=== PATIENT | male | born 1970 | race Two or more races ===

== ENCOUNTER 2018-03-30 20:23 | Emergency (ER) | payer OTHER ==
--- NOTE | 2018-03-31 00:51 | ER Document Report ---
ED Medical Screen (RME) - General Chief Complaint: Laceration Stated Complaint: FACIAL LACERATION Time Seen by Provider: 03/31/18 00:45 Mode of Arrival: Ambulatory Information source: Patient Notes: Patient with 2 cm superficial laceration just superior to the left eye above the eyebrow. Patient reports he was working on a vehicle when a ratchet hit him in the face. Patient denies any significant past medical history. Patient unsure when last Tdap was. Exam: 2 cm superficial laceration superior to the left eye. No active bleeding noted at this time. I have greeted and performed a rapid initial assessment of this patient. A comprehensive ED assessment and evaluation of the patient, analysis of test results and completion of the medical decision making process will be conducted by additional ED providers. Dictation of this chart was performed using voice recognition software; therefore, there may be some unintended grammatical errors. TRAVEL OUTSIDE OF THE [place] IN LAST 30 DAYS: No - Related Data Allergies/Adverse Reactions: No Known Allergies Allergy (Verified 03/30/18 20:24) Physical Exam - Vital signs Vitals: Temp Pulse Resp BP Pulse Ox 98.6 F 68 19 176/91 H 96 03/30/18 20:34 03/30/18 20:34 03/30/18 20:34 03/30/18 20:34 03/30/18 20:34 Course - Vital Signs Vital signs: Temp Pulse Resp BP Pulse Ox 98.6 F 68 19 176/91 H 96 03/30/18 20:34 03/30/18 20:34 03/30/18 20:34 03/30/18 20:34 03/30/18 20:34
[2018-03-31] MEDS ORDERED: LIDOCAINE 4%/TETRACAINE 0.5%/EPI 0.18% 5 ML TOPICAL SOLN TOP ONE (00:54)
[2018-03-31] MEDS ORDERED: DIPH/PERTUSS(ACELL)/TETANUS VAC/PF 0.5 ML SYR (>=10YO) IM ONE (00:55)
[2018-03-31] MEDS ORDERED: IBUPROFEN 600 MG TABLET PO ONE (00:58)
--- NOTE | 2018-03-31 01:48 | ER Document Report ---
ED Wound <JACKIE CUNNINGHAM - Last Filed: 03/31/18 01:49> - General Mode of Arrival: Ambulatory TRAVEL OUTSIDE OF THE [place] IN LAST 30 DAYS: No <DENEEN FUENTES - Last Filed: 03/31/18 01:58> - General Chief Complaint: Laceration Stated Complaint: FACIAL LACERATION Time Seen by Provider: 03/31/18 00:45 - Related Data Allergies/Adverse Reactions: No Known Allergies Allergy (Verified 03/30/18 20:24) Past Medical History - Social History Smoking Status: Never Smoker Frequency of alcohol use: None Drug Abuse: None Lives with: Family Family History: Reviewed & Not Pertinent <JACKIE CUNNINGHAM - Last Filed: 03/31/18 01:49> - General Information source: Patient <DENEEN FUENTES - Last Filed: 03/31/18 01:58> - Vital signs Vitals: Temp Pulse Resp BP Pulse Ox 98.6 F 68 19 176/91 H 96 03/30/18 20:34 03/30/18 20:34 03/30/18 20:34 03/30/18 20:34 03/30/18 20:34 Course <JACKIE CUNNINGHAM - Last Filed: 03/31/18 01:49> <DENEEN FUENTES - Last Filed: 03/31/18 01:58> - Re-evaluation Re-evalutation: 03/31/18 01:49 Following discussion of risks, alternatives, and benefits, the patient had the wound area cleaned with saline then topical anesthetic LET was applied to the wound then the 1.2 cm laceration was reapproximated and closed by myself using Dermabond with good result. Blood loss negligible. No clinical suggestion for significant intracranial injury or fracture. Patient denies any significant headache. He is neurologically intact and had no loss of consciousness. Patient was given a tetanus shot. (JACKIE CUNNINGHAM) - Vital Signs Vital signs: Temp Pulse Resp BP Pulse Ox 98.6 F 68 19 176/91 H 96 03/30/18 20:34 03/30/18 20:34 03/30/18 20:34 03/30/18 20:34 03/30/18 20:34 Discharge <JACKIE CUNNINGHAM - Last Filed: 03/31/18 01:49> <DENEEN FUENTES - Last Filed: 03/31/18 01:58> - Discharge Clinical Impression: Laceration Condition: Stable Disposition: HOME, SELF-CARE Additional Instructions: NON-SUTURED LACERATION: Your laceration did not require suturing. Some lacerations cannot be sutured because of increased infection risk, while others simply don't need stitches because they are shallow or very short. Your injury should be protected while it heals. Usually complete healing takes 10 to 14 days. Keep the dressing clean and dry, and change it every day. If you notice increasing pain, redness, swelling, drainage, or tender lumps in the armpit or groin above the injury, infection may be present. You should call the doctor at once. TETANUS IMMUNIZATION GIVEN: You have been given an immunization against tetanus. Please record this in your records. In general, a booster is needed only once every 10 years. The tetanus shot protects against tetanus or "lockjaw," which is a complication of certain wound infections (the tetanus shot cannot protect against the actual infection). The immunization site may become warm and red due to local reaction. If this occurs, apply warm compresses and take aspirin or ibuprofen to reduce inflammation and discomfort. Return for evaluation if the reaction becomes severe. Dermabond (Skin Adhesive Closure) Skin adhesive (such as Dermabond) is a quick-drying glue that remains slightly flexible while it holds wound edges together. It can substitute for stitches on some cuts. The film will usually fall off the skin after 5 to 10 days. Keep the wound area clean and dry. Do not soak or scrub the wound. Don't swim. You can shower briefly after 24 hours. Gently blot the area dry with a soft towel. Don't apply ointments. If there is a dressing, change it immediately if it gets wet. Do not place tape directly over the adhesive film, because the tape may pull the film off your skin as you remove it. Don't bump the wound area. If there's risk of injury, keep the area well- padded. Avoid stretching of the skin. Do not scratch or pick at the adhesive film. Avoid prolonged exposure to sunlight or tanning lamps. Return if there is increasing pain, swelling, redness, or drainage, or if the wound edges seem to open or separate.
[2018-03-31 05:43] VITALS: BP 151/95
== END 2018-03-31 05:43 | disposition home or self-care (01) ==
LOC: ER 20:23
PROC: 0HQ1XZZ Repair Face Skin, External Approach (ICD-10-PCS; principal; 2018-03-30)
DX: S01.81XA Laceration without foreign body of other part of head, initial encounter (principal); W22.8XXA Striking against or struck by other objects, initial encounter
CPT/HCPCS: 99282